=== PATIENT | female | born 2000 | race Caucasian/White ===

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

== ENCOUNTER → 2021-01-13 | Outpatient (CLI) | payer BC | END | disposition home or self-care (01) | LOC: LABWHC1 14:25 | PROVIDERS: ATTEND Family Medicine | DX: E01.0 Iodine-deficiency related diffuse (endemic) goiter (principal) | CPT/HCPCS: 36415; 86376; 86800 ==

== ENCOUNTER → 2021-01-14 | Outpatient (CLI) | payer BC ==
--- NOTE | 2021-01-14 11:19 | US ---
EXAMINATION TYPE: US thyroid st tissue head/neck DATE OF EXAM: 01/14/2021 COMPARISON: NONE CLINICAL HISTORY: E01.0 Thyromegaly. GLAND SIZE: Right Lobe: 5.7 x 1.8 x 1.8 cm Overall Parenchyma: heterogenous Left Lobe: 4.5 x 1.9 x 1.3 cm Overall Parenchyma: heterogeneous Isthmus Thickness: 0.7 cm NODULES RIGHT: # of nodules measured on right: 1 1. 0.8 x 0.6 x 0.5 cm, upper pole, mixed cystic and solid, isoechoic nodule, which is wider than milind l, with smooth margins, without echogenic foci. LEFT: # of nodules measured on left: 1 1. 0.3 X 0.3 x 0.2 cm, upper pole, solid or almost completely solid, isoechoic nodule, which is wid er than tall, with smooth margins, without echogenic foci. ISTHMUS: # of nodules measured in the isthmus: 1 1. 0.7 X 0.5 x 0.6 cm solid or almost completely solid, isoechoic nodule, which is wider than tall, with smooth margins, without echogenic foci. Bilateral neck scanned: lymph node seen lateral to right thyroid = 1.5 x 1.0 x 0.4cm; lymph node see n inferior to left thyroid = 1.4 x 0.8 x 0.7cm with additional lymph nodes seen lateral to left thyro id. Heterogeneous normal-sized thyroid with scattered nodules noted as detailed above. Technologists iden tify prominent but subcentimeter lymph nodes in the bilateral neck. IMPRESSION: As above. No concerning greater than 1 cm nodules.
== END | disposition home or self-care (01) ==
LOC: RADUSWWP 10:29
PROVIDERS: ATTEND Family Medicine
DX: E04.2 Nontoxic multinodular goiter (principal)
CPT/HCPCS: 76536

== ENCOUNTER → 2021-04-05 | Outpatient (CLI) | payer BC ==
[2021-04-05 09:50] VITALS: BP 132/92; PULSE 103; RESP 16; TEMP 98.4
--- NOTE | 2021-04-05 11:28 | P.HPOB ---
History of Present Illness H&P Date: 04/05/21 Chief Complaint: The patient is here for her routine gynecologic exam. This is a 20-year-old G0 with an LMP of 03/04/2021. The patient is here to establish with this office. She states she has never had a pelvic examination. She states she is abstaining from sexual activity until her marriage which is going to be in May 2023. She has been with her fianc since 2016. She states she has never been sexually active. Her menarche was at approximately age 11. She had been regular every month with menstrual periods lasting 5-7 days with 1-3 days of heavier flow at the beginning. She noticed a change in her menstrual periods in October of this year and her menstrual periods have not been about every 4-6 weeks with slightly more variable flow. She believes she has had a weight gain of about 50 pounds over the past 3-4 years. She was told by her PCP that she had an abnormal thyroid test and was referred to an 3rd pressman. She also has had intermittent sinus tachycardia. She denies nipple discharge or unusual facial hair growth. She has been trying to increase her exercise during this past year. Review of Systems She has lost 5-10 pounds during the past year and she states she has been trying to exercise more. During the 4 years prior, she had gained 50 pounds. She denies respiratory, cardiac, or GI problems. Past Medical History Additional Past Medical History / Comment(s): Sinus tachycardia. 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 History of Any Multi-Drug Resistant Organisms: None Reported Past Surgical History: Adenoidectomy Past Psychological History: No Psychological Hx Reported Smoking Status: Never smoker Past Alcohol Use History: None Reported Past Drug Use History: None Reported Additional History: The patient is single and is engaged to be on 06/02/2023. 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 - Past Family History Father Family Medical History: Diabetes Mellitus, Thyroid Disorder Additional Family Medical History / Comment(s): Type 2 diabetes. Hypothyroid. Paternal grandfather had elevated cholesterol. Mother Family Medical History: Thyroid Disorder Additional Family Medical History / Comment(s): Crohn's disease. Hypothyroid. Medications and Allergies Home Medications Medication Instructions Recorded Confirmed Type No Known Home Medications 04/05/21 04/05/21 History Allergies Allergy/AdvReac Type Severity Reaction Status Date / Time No Known Allergies Allergy Unverified 04/05/21 09:43 Exam Vital Signs Temp Pulse Resp BP Pulse Ox 04/05/21 09:43 98.4 F 103 H 16 132/92 98 Intake and Output 04/04/21 04/05/21 04/05/21 22:59 06:59 14:59 Other: Weight 106.594 kg Height 5 feet 6 inches, weight 235 pounds, BMI 37.9. This is a well-developed well-nourished heavyset white female who is alert and oriented times 3 in no acute distress. HEENT: Within normal limits. NECK: Supple without mass or thyromegaly. CHEST AND LUNGS: Clear to auscultation. HEART: Regular rate and rhythm. BREASTS: Are without mass or discharge. AXILLARY EXAM: Negative for adenopathy. BACK: Negative for CVA tenderness. ABDOMEN: Soft, nontender, without palpable masses. PELVIC EXAM: Normal external genitalia. Hymenal ring does not appear intact. Small Graves speculum was inserted without difficulty. Cervix and vagina appear normal. There is no unusual discharge. There is no evidence of prolapse. The uterus is midposition, nongravid size and nontender. There are no palpable adnexal masses or tenderness. RECTAL EXAM: Rectal exam was deferred. EXTREMITIES: Nontender. IMPRESSION: 1. 20-year-old female with normal gynecologic exam. 2. The patient is planning to abstain from sexual intercourse until her marriage in May 2023. 3. Slight menstrual change during the past 5 months going from regular every 4 weeks to every 4-6 weeks. Differential diagnosis will include thyroid dysfunction, mild PCOS without abnormal hair growth, or menstrual changes related to weight gain. 4. Mildly elevated blood pressure. PLAN: 1. Pap smear was deferred until age 21. 2. Self breast awareness was discussed with the patient. 3. GC and Chlamydia screen was obtained from the cervix. 4. We have had long discussion regarding her menstrual changes. She has an appointment with an 3rd pressman in 1-2 weeks for further evaluation of possible thyroid dysfunction. She states she did have some type of abnormal thyroid testing by her PCP which initiated the referral. 5. Weight control was discussed. I have discussed the importance of regular meals, good nutrition, adequate fiber and regular exercise. 6. She states she has had 2 of the 3 HPV vaccinations. I have recommended that she have the third one done to complete the vaccination series. 7. STD prevention was discussed. 8. If she is having greater menstrual irregularity, we can consider trial of oral contraception. We can also consider this if she is in need of control. 9. She will keep a menstrual calendar and call if she is having greater menstrual irregularity or problems. 10. We have discussed her elevated blood pressure. I recommended that she check her blood pressures on a regular basis and follow up with her primary care physician for pressure elevations. 11. She was advised to return in one year for her annual well woman exam and as needed.
== END ==
LOC: WWCWWP 09:15
PROVIDERS: ATTEND Obstetrics & Gynecology
DX: Z01.419 Encounter for gynecological examination (general) (routine) without abnormal findings (principal); N92.6 Irregular menstruation, unspecified; R63.5 Abnormal weight gain; R03.0 Elevated blood-pressure reading, without diagnosis of hypertension

== ENCOUNTER → 2021-11-08 | Outpatient (CLI) | payer BC ==
[2021-11-08 18:55] LABS: T4, Free (Free Thyroxine) 1.5 ng/dL (0.800-1.800)
== END | disposition home or self-care (01) ==
LOC: LABWHC1 11:55
PROVIDERS: ATTEND Internal Medicine Endocrinology, Diabetes & Metabolism
DX: E04.2 Nontoxic multinodular goiter (principal)
CPT/HCPCS: 36415; 84439; 84443

== ENCOUNTER → 2022-02-27 | Outpatient (CLI) | payer BC | END | disposition home or self-care (01) | LOC: LABWHC1 14:01 | PROVIDERS: ATTEND Internal Medicine Endocrinology, Diabetes & Metabolism | DX: E03.8 Other specified hypothyroidism (principal) | CPT/HCPCS: 36415; 84443 ==

== ENCOUNTER → 2022-04-18 | Outpatient (CLI) | payer BC ==
[2022-04-18 10:19] VITALS: BP 168/94; PULSE 110; RESP 18; TEMP 98.9
--- NOTE | 2022-04-18 11:08 | P.HPOB ---
History of Present Illness H&P Date: 04/18/22 Chief Complaint: The patient is here for her routine gynecologic exam. This is a 21-year-old G0 with an LMP of 03/21/2022. The patient is engaged to be in 2023. She has been sexually active with her fianc and has used condoms. Menstrual periods continue to be about every 4-6 weeks. They did not become more regular after starting Synthroid in April 2021. She sees an branch chief for hypothyroidism. Review of Systems She has gained about 52 pounds over the past year. She attributes much of the weight gain to being at home and attending school virtually during the past year. She will be going back to the [facility] next week. She denies respiratory, cardiac, or GI problems. Past Medical History Past Medical History: Thyroid Disorder Additional Past Medical History / Comment(s): Sinus tachycardia. Hypothyroidism. 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 She has completed the HPV vaccination series. History of Any Multi-Drug Resistant Organisms: None Reported Past Surgical History: Adenoidectomy Past Psychological History: No Psychological Hx Reported Smoking Status: Never smoker Past Alcohol Use History: None Reported Past Drug Use History: None Reported Additional History: The patient is engaged to be in 2023. They do not live together. She is a student at the [employer]. Her fianc lives in [place]. - Past Family History Father Family Medical History: Diabetes Mellitus, Thyroid Disorder Additional Family Medical History / Comment(s): Type 2 diabetes. Hypothyroid. Paternal grandfather had elevated cholesterol. Mother Family Medical History: Thyroid Disorder Additional Family Medical History / Comment(s): Crohn's disease. Hypothyroid. Medications and Allergies Home Medications Medication Instructions Recorded Confirmed Type Levothyroxine Sodium [Synthroid] 200 mcg PO DAILY 04/18/22 04/18/22 History Allergies Allergy/AdvReac Type Severity Reaction Status Date / Time No Known Allergies Allergy Unverified 04/18/22 10:12 Exam Vital Signs Temp Pulse Resp BP Pulse Ox 04/18/22 10:14 98.9 F 110 H 18 168/94 96 Intake and Output 04/17/22 04/18/22 04/18/22 22:59 06:59 14:59 Other: Weight 130.181 kg Repeat blood pressure with a large blood pressure cuff was 132/82. The original blood pressure was taken with a small cuff. Height 5 feet 6 inches, weight 287 pounds, BMI 46.3. This is a well-developed well-nourished obese female who is alert and oriented times 3 in no acute distress. HEENT: Within normal limits. NECK: Supple without mass or thyromegaly. CHEST AND LUNGS: Clear to auscultation. HEART: Regular rate and rhythm. BREASTS: Are without mass or discharge. AXILLARY EXAM: Negative for adenopathy. BACK: Negative for CVA tenderness. ABDOMEN: Soft, obese, nontender, without palpable masses. PELVIC EXAM: Normal external genitalia. Cervix and vagina appear normal. There is no unusual discharge. There is no evidence of prolapse. The uterus is midposition, nongravid size and nontender. There are no palpable adnexal masses or tenderness. Bimanual examination is somewhat limited secondary to her size. RECTAL EXAM: Deferred. EXTREMITIES: Nontender. IMPRESSION: 1. 21 year old female with normal gynecologic exam. The patient has been using condoms for control. 2. Mild menstrual irregularity with cycles between 4-6 weeks. 3. Obesity. 4. Elevated blood pressure when taken with a small blood pressure cuff. The blood pressure was improved with the larger blood pressure cuff. PLAN: 1. Pap smear was performed. This will be cytology only. 2. Self breast awareness was discussed with the patient. We have also discussed symptoms associated with inflammatory breast cancer. 3. Weight control was discussed with the patient. I have stressed the importance of good nutrition and regular exercise. 4. She will continue to keep a menstrual calendar and call if menstrual problems. 5. She plans on abstaining from sexual activity while she is away at school since her fianc will be in a different state. She will use condoms if she is sexually active. 6. STD prevention was discussed. I have stressed the importance of limiting sexual partners and I recommended using condoms if she is sexually active. 7. We have discussed her elevated blood pressure with her initial blood pressure check. I recommended that she check her own blood pressures since she does have a blood pressure cuff at home or can get them done at the grocery store pharmacies. She will follow up with her primary care physician for blood pressure elevations. 8. She has completed her HPV vaccination series and this was done through the local health department. 9. She was advised to return in one year for her annual well woman exam.
[2022-04-20 07:46] LABS: C. trachomatis,PCR Negative (Neg,Equiv); Chlamydia trachomatis Source Cervix; N. gonorrhoeae,PCR Negative (Neg,Equiv); Neisseria Source Cervix
== END ==
LOC: WWCWWP 10:05
PROVIDERS: ATTEND Obstetrics & Gynecology
DX: Z01.419 Encounter for gynecological examination (general) (routine) without abnormal findings (principal); E03.9 Hypothyroidism, unspecified; Z79.890 Hormone replacement therapy; E66.9 Obesity, unspecified; R03.0 Elevated blood-pressure reading, without diagnosis of hypertension; Z68.42 Body mass index [BMI] 45.0-49.9, adult
CPT/HCPCS: 87491; 87591